=== PATIENT | male | born 1955 | race African-American/Black ===

== ENCOUNTER 2019-11-13 10:42 | Emergency (ER) | payer MEDICARE, OTHER ==
[2019-11-13] MEDS ORDERED: methylPREDNISolone Sod Succ/PF 125 MG/2 ML VIAL ONE (11:36)
[2019-11-13] MEDS ORDERED: diphenhydrAMINE 50 MG/ML VIAL ONE (11:36)
== END 2019-11-13 12:27 | disposition home or self-care (01) ==
LOC: BURERS 10:42
DX: M54.16 Radiculopathy, lumbar region (principal); L50.9 Urticaria, unspecified
CPT/HCPCS: 96372; 99283; J1200; J2930